=== PATIENT | male | born 1930 | race Caucasian/White ===

== ENCOUNTER 2017-03-24 14:09 | Emergency (ER) | payer MEDICARE ==
[~2017-03-24] VITALS: Ht 162.6 cm; Wt 57.3 kg
[2017-03-24 14:24] VITALS: BP 122/71; PULSE 71; RESP 15; O2SAT 100
--- NOTE | 2017-03-24 15:57 | ED.REPORT ---
HPI-Extremity Problem Lower Date of Service Mar 24, 2017 ED Provider: History of Present Illness: cut the end of finger. Saw Dr. San at [place] this am. happened around 8 am. loading an arrow into bow and string cut the end of the finger. right hand dominant. primary care is edie in [place]. GUERRERO. left 3 rd finger. States the MD in [place] sent him here for surgery. Nursing Notes Stated Complaint: LEFT HAND FINGER INJURY/LACERATION Chief Complaint: Extremity Trauma Nursing Notes Reviewed: Yes Allergies: Coded Allergies: Penicillins (Verified Adverse Reaction, Intermediate, skin felt like it was crawling, 03/24/17) Scheduled Aspirin (Aspirin) 81 Mg Tablet 81 MG PO DAILY Carvedilol (Carvedilol) 3.125 Mg Tablet 3.125 MG PO BID Furosemide (Furosemide) 20 Mg Tab 20 MG PO BID Simvastatin (Simvastatin) 20 Mg Tablet 20 MG PO HS Miscellaneous Medications Losartan Potassium (Losartan Potassium) 25 Mg Tablet 25 MG PO General Time Seen by MD: 15:56 Chief Complaint Other (left 3rd finger partial amputation) Hx Obtained From: Patient Onset Occurred: 5 - 8 hours ago Past Medical History Past Medical History Denies: Asthma, Hypertension Past Surgical History AR in 1994, 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 Smoking History Never Smoker Social History Alcohol Use: Denies alcohol use Drug Use: Denies drug use Other Social History: Occupation lives in 1 story house 03/24/2017 Ambulatory Status Independent Review of Systems Basic Review of Systems Eyes: Vision NL, No discharge Endocrine: No cold intolerance, No heat intolerance, No weight gain, No weight loss Physical Exam Initial Vital Signs Vital Signs (First) Date Time Temp Pulse Resp B/P Pulse Ox O2 Delivery O2 Flow Rate FiO2 03/24/17 14:24 36.9 71 15 122/71 100 Room Air Initial VS: Reviewed, Vital signs normal General/Constitutional: Well-developed, Well-nourished Head / Eyes: Atraumatic, Normocephalic, PERRL ENT: Mucous membranes moist, Conjunctiva normal, No scleral icterus Neck: Supple, Non-tender, Full range of motion Respiratory: Breath sounds normal, Clear to auscultation, No respiratory distress Cardiovascular: Regular rate & rhythm, Heart sounds normal, Intact distal pulses Abdomen / GI: Soft, Non-tender, No guarding, No rebound, No distention Back: No CVA tenderness Lymphatic: No lymphadenopathy Upper Extremities: Vascular intact, Neuro intact, No swelling, No tenderness Skin: Warm, Dry, No cyanosis Neurologic: Alert, Oriented, Nonfocal Psychiatric: Mood/affect normal, Behavior normal, Normal thought content General/Constitutional: Awake, Alert, No acute distress, Well appearing, Well developed, Well hydrated thumb on left hand has small area of missing nail, pulled by string on bow. The 2nd finger has avulsion injury at finger tip. #rd finger has partial amputation with the nail being cut and part of the finger pad, approximately 60% of the tip is severed. Tip is pink with good perfusion. Respiratory / Chest: Atraumatic, Breath sounds NL, Breath sounds = bilat Cardiovascular: Heart rate NL, Regular rhythm, Heart sounds NL, No gallop Interpretation & Diagnostics X-Ray Interpretation Xray Interpretation: PROCEDURE: X-RAY LEFT HAND, MINIMUM THREE VIEWS ([id number]) INDICATIONS: partial amputation of l 3rd finger tip TECHNIQUE: 4 views of the hand(s) acquired. COMPARISON: None. FINDINGS: Bones: Comminuted fractured tuft of the middle finger. Carpal bones are normally aligned. No suspicious bony lesions. Soft tissues: Soft tissue injury tip of the index and middle fingers. IMPRESSION: 1. Comminuted fracture tuft of the middle phalanx, apparently open fracture. 2. Soft tissue injury distal phalanges of the index and middle fingers. Dictated by: Dl Mcclellan M.D. on 03/24/2017 at 16:42 Approved by: Dl Mcclellan M.D. on 03/24/2017 at 16:44 Procedures Laceration Management Time: 17:00 Procedure Performed by: Allied health pract Consent / Setup / Site Prep: Informed consent provided, Consent from patient , Hand hygiene observed, Stand sterile technique Location of Wound: left 3rd finger tip Wound Length: 2 cm Local Anesthesia: Lidocaine 1%, 4cc, 27g needle Digital Block: Yes Digit Involved: Middle finger left Wound Preparation: Normal saline Debridement: None Irrigation: Copious Undermining / Margins: Flaps aligned Repair Skin: ___ O (5), Nylon # Sutures - Skin: 7 Closure Layers: 1 Suture Technique: Simple Post-Procedure / Complications: Antibiotic oint applied, Dressing applied, No complications, Condition improved, Tolerated procedure well, Patient stable Re-Eval/Medical Decision Med Decision/Clinical Course Consult with Dr. Lackey. Explained family is expecting surgery. She advised to do the usual repair and she will follow with them in clinic. Wound is washed and edges well approximated. Nail bed is stitched together to help hold tip in place. no sign of compartment syndrome. Discharge & Departure Impression: Primary Impression: Partial traumatic metacarpophalangeal amputation of left middle finger Encounter type: initial encounter Qualified Code: S68.123A - Partial traumatic metacarpophalangeal amputation of left middle finger, initial encounter Additional Impression: Avulsion of finger tip Encounter type: initial encounter Qualified Code: S61.209A - Unspecified open wound of unspecified finger without damage to nail, initial encounter Disposition: Home Patient Instructions: Finger Amputation (ED) Additional Instructions: You have a partial amputation of the 3rd middle finger. The wound has been washed and repaired. Continue with keflex 500 mg 3 times a day for 7 days. Can use hydrocodone 1 at night as needed for severe pain. Please follow with Dr. Lackey's office. They will call you for follow up. Keep the dressing on till you are seen in follow up this week. I am sorry this happened. Referrals: Jorge Lackey MD EDSupervising Provider for APC: Bo Leung DO copies to: Jorge Lackey MD, Sue ARNP Mar 24, 2017 15:57
[2017-03-24] MEDS ORDERED: CARV3.122 PO (16:31)
[2017-03-24] MEDS ORDERED: FUR20 PO (16:31)
[2017-03-24] MEDS ORDERED: SIMV20TA4 PO (16:31)
[2017-03-24] MEDS ORDERED: ASPI-973 PO (16:31)
[2017-03-24] MEDS ORDERED: LOSA25TA21 PO (16:31)
--- NOTE | 2017-03-24 16:46 | DRSVH ---
PROCEDURE: X-RAY LEFT HAND, MINIMUM THREE VIEWS ([id number]) INDICATIONS: partial amputation of l 3rd finger tip TECHNIQUE: 4 views of the hand(s) acquired. COMPARISON: None. FINDINGS: Bones: Comminuted fractured tuft of the middle finger. Carpal bones are normally aligned. No suspic ious bony lesions. Soft tissues: Soft tissue injury tip of the index and middle fingers. IMPRESSION: 1. Comminuted fracture tuft of the middle phalanx, apparently open fracture. 2. Soft tissue injury distal phalanges of the index and middle fingers. Dictated by: Dl Mcclellan M.D. on 03/24/2017 at 16:42 Approved by: Dl Mcclellan M.D. on 03/24/2017 at 16:44
[2017-03-24 16:56] VITALS: BP 125/42; PULSE 80; RESP 15; O2SAT 99
[2017-03-24] MEDS ORDERED: cefTRIAXone Inj 1,000 MG in Dextrose 5% Minibag Plus 50 ML IV ONE (17:05)
[2017-03-24] MEDS ORDERED: Lidocaine 1% 50 mL Inj NERVEBLOCK ONE (17:05)
[2017-03-24] MEDS ORDERED: cefTRIAXone Inj 1,000 MG, Lidocaine PF 1% Inj 2.1 ML in Syringe 0 EACH IM ONE (17:10)
[2017-03-24 18:08] VITALS: BP 125/42; PULSE 80; RESP 15; O2SAT 99
== END 2017-03-24 18:00 | disposition home or self-care (01) ==
LOC: SED 14:09
DX: S68.123A Partial traumatic metacarpophalangeal amputation of left middle finger, initial encounter (principal); W26.8XXA Contact with other sharp object(s), not elsewhere classified, initial encounter; Y93.89 Activity, other specified; Y99.8 Other external cause status; Y92.018 Other place in single-family (private) house as the place of occurrence of the external cause; I25.2 Old myocardial infarction; Z79.82 Long term (current) use of aspirin; Z88.0 Allergy status to penicillin
CPT/HCPCS: 12001; 73130; 96372; 99284; J0696